=== PATIENT | female | born 1990 | race African-American/Black ===

== ENCOUNTER 2022-06-11 00:52 | Day surgery (SDC) | payer BC, SELFPAY ==
[2022-06-07 15:17] VITALS: BMI 22.8
--- NOTE | 2022-06-07 15:23 | PC.NURSE ---
Report to the Outpatient Waiting Room, entrance under the green pavilion located off [facility], at time 07:00 on date 06/11/22. Planned Procedure Time: 09:00AM. Time changes happen often and if your time is changed the preop area will call you the afternoon before. - You and your visitor will be asked to self-screen and do not enter if you have any COVID symptoms. - We encourage only one visitor and NO visitors under age 16 are allowed at this time. Your visitor will receive communication by the phone number that is given day of service. - The patient visitor is requested to social distance or may leave the building when not with patient due to restrictions. - A mask is required within the hospital. Patients may have clear liquids (water, carbonated beverages, clear teas, apple juice) until 3 hours prior to surgery (06:00AM) with a maximum of 20 ounces. - No food from midnight until time of surgery Take the following medications with a SIP of water the morning of surgery: XANAX NEEDED Medications to discontinue per physician: N/A Please no make-up, nail sammarinese, hairspray, perfume, deodorant, or body powder the day of surgery. No jewelry (including any body piercings) or valuables the day of surgery, leave them at home. Please take a shower or bath the night before, or the morning of, surgery with an antibacterial soap. Wear comfortable, loose fitting clothing. - Jewelry must be removed prior to entering the operating room. Rings and piercings that are not removed may be cut off. - The hospital will not accept responsibility for valuables. - Please leave all valuables, including medications, at home the day of surgery. If you are going home after surgery, a licensed student truck driver must drive you home. - NO public transportation without another adult. - We recommend that an adult stay with you for 24 hours following discharge. - We also recommend that you do not drive, make important decision, drink alcoholic beverages, or take any drugs that were not prescribed by your health care provider for at least 24 hours after your discharge time. Follow any additional instructions given to you from your surgeon. If you or anyone in your household have experienced Covid symptoms in the past week, please notify your surgeon or the nurse liaison at the phone number below for possible testing. Telephone instructions given to PATIENT and asked if any additional questions and then verbalized understanding. Patient advised to call surgeon office or pre surgery nurse liaison [phone] if any additional questions.
[2022-06-11] VITALS (9 sets, daily range): BP systolic 94–115; BP diastolic 58–73; PULSE 53–88; RESP 12–17; TEMP 36.4–36.8; O2SAT 100
--- NOTE | ~2022-06-11 | XR_ITS ---
EXAMINATION: XR surgery orthopedic DATE: 06/11/2022 10:47 INDICATION: Right foot bunionectomy TECHNIQUE: 2 fluoroscopic images of the right forefoot were obtained during procedure performed by Dr Monique Brothers. Radiologist was not present for the imaging or procedure. The amount of fluoroscopy time used during this procedure was 0.3 minutes. COMPARISON: None. FINDINGS: First tarsal metatarsal arthrodesis with dorsal plate and screw fixation. This includes a longer scre w which extends medially along the course of the Lisfranc ligament into the middle cuneiform. Stable fixation at the medial base of the first proximal phalanx likely for fixation of a realignment osteot rony. Alignment appears essentially anatomic. No fractures identified. Joint spaces are unremarkable. Irregular contour to the skin surface medially of the head of the first metatarsal likely related to reported bunionectomy. IMPRESSION: 1. Fluoroscopy utilized during reported bunionectomy at the right foot. Correlate with procedure note for further detail. Reviewed, dictated and finalized at location B. IMPRESSION: 1. Fluoroscopy utilized during reported bunionectomy at the right foot. Correla te with procedure note for further detail.
--- NOTE | 2022-06-11 07:10 | WPDHPUPDATE1 ---
History and Physical Update Update Date/Time: 06/11/22 07:10 History and Physical has been reviewed, including an updated exam of the patient. There are NO changes in the patient's condition. Risks, benefits, and alternatives have been discussed and questions answered. Patient agrees to proceed with procedure.
[2022-06-11] MEDS: LACTATED RINGERS 1,000 ML 30 ML IV CONT ×2 (07:45→11:07)
--- NOTE | 2022-06-11 08:50 | WPDANESEPPF ---
Anes - Initial Pre Proc Eval Procedure: Operation Date: 06/11/22 09:00 Proposed Procedures p Lapidus Bunionectomy Right Foot, Román Phalangeal Osteotomy Right Hallux - Pradip Brothers JR, MD Date/Time: 06/11/22 08:50 Surgeon: Pradip Brothers JR, MD Pre Op Diagnosis: BUNION DEFORMITY RIGHT FOOT Patient Data Age: 32 Gender: F Height: 1.7 m Weight: 64.6 kg Last Vital Signs Temp 36.4 C L 06/11/22 08:00 Pulse 65 06/11/22 08:00 Resp 14 06/11/22 08:00 BP 102/62 06/11/22 08:00 Pulse Ox 100 06/11/22 08:00 O2 Del Method Room Air 06/11/22 08:00 Allergies Allergy/AdvReac Type Severity Reaction Status Date / Time No Known Allergies Allergy Verified 06/11/22 08:26 Home Medications Medication Instructions Recorded Confirmed Type alprazolam 0.5 mg tablet 0.5 mg PO TID PRN Anxiety 06/07/22 06/11/22 History Patient hx anesthesia problems: none Family hx anesthesia problems: post op nausea/vomiting Results Review: All pre-operative results and documents have been reviewed as part of the pre-operative evaluation. [facility] Past Medical History Medical History (Updated 06/11/22 @ 08:51 by Carter Yi MD) Anxiety Social History Social History Smoking status: Never smoker Second hand tobacco smoke exposure: Yes (DAD, EX ) Alcohol intake: current Drinks per week: 3 Alcohol use details: SOCIALLY Substance use: never Substance use type: does not use Living arrangements: with family Spiritual care concerns: No Anes - Eval Final PreProcedure Day of Procedure 06/11/22 08:50 Patient weight: normal Heart: regular rate and rhythm Lungs: clear to auscultation Airway: Mallampati scale class II Neurological: alert and oriented Last oral intake: >/= 8 hours ASA classification: II Emergent: no Anesthetic plan: proceed Anesthesia type and monitoring: general LMA and standard monitoring Results Review: All pre-operative results and documents have been reviewed as part of the pre-operative evaluation. Informed Consent: The patient's anesthetic plan and its attendant risks and benefits were discussed with the patient/family/POA. Questions were solicited and answers provided to the satisfaction of the patient/family/POA.
[2022-06-11] MEDS: SCOPOLAMINE 1.5 MG PATCH TRANSDERM (08:52)
--- NOTE | 2022-06-11 09:03 | WPDANESPNB ---
Anes - Peripheral Nerve Block Date/Time: 06/11/22 09:03 I have discussed with the patient/family/POA the placement of a peripheral nerve block for post-operative pain management, including associated risks, benefits, complications, and side effects. Alternative methods of post-operative analgesia were detailed. Questions were solicited and answers provided to the satisfaction of the patient/family/POA. Time-Out: A pre-procedural Time-Out was completed immediately before starting the procedure and confirmed: Patient Identification, Site, Procedure, Patient Position and the Availability of Requisite Equipment. Clinical Indications: Acute post-operative pain management requested by the operative surgeon. Nerve Block Insertion Note Anes-nerve block: posterior fossa sciatic right and other (Saphenous right) Patient position: supine Skin prep: chlorhexidine Needle: 22 gauge, stimulating, insulated echogenic needle. Needle length: 80 mm Technique: nerve stimulation lost at (mA) Technique comment: mid 2mg [id number] Injectate: bupivacaine 0.5% with epi 5 mcg/ml (20/10ml no epi) and dexamethasone (mg) (4) Observations: tolerated well Complications: none Procedure start time:: 855 Procedure end time:: 901
[2022-06-11] MEDS: ceFAZolin 2 GM/D5W 50 ML 2 GM/50 ML BAG IVPB (09:05)
--- NOTE | 2022-06-11 11:12 | W.PM.PROC2 ---
Procedure Note - Detailed Date of Procedure 06/11/22 Pre-op Diagnosis BUNION DEFORMITY RIGHT FOOT Post-op Diagnosis Same Procedure Performed 1. Lapidus bunionectomy right foot 2. Román phalangeal osteotomy right hallux Surgeon Pradip Brothers JR, HODAM Anesthesia General and Regional (Popliteal fossa block) Indications Painful right bunion deformity right foot Findings No intra articular pathology noted Description of Procedure Untder mild sedation, the patient was brought to the operating room, placed on the operating table in the supine position. A pneumatic ankle tourniquet was placed about the patient's ankle. Following general anesthesia and a previous popliteal fossa block, the foot was then scrubbed, prepped, and draped in the usual aseptic manner. An Esmarch bandage was then used to exanguinate the patient's foot and pneumatic ankle tourniquet was then inflated. Surgery began in the following manner. Attention was directed to the dorsal aspect of the 1st metatarsocuneiform of the foot where fluoroscopy was used to identify the joint. A 3 cm incision was made overlying the dorsal aspect of the 1st metatarsocuneiform joint of the foot just medial to the extensor hallucis longus tendon. The incision was then continued deep down through the subcutaneous tissues using sharp and blunt dissection. All bleeders were ligated and cauterized as necessary. At this point, the extensor tendon was identified and reflected laterally. Next, the periosteum and capsular incision was made at the full length of the skin incision exposing the medial cuneiform as well as the base of the 1st metatarsal. Next, a sagittal bone saw was introduced from dorsal to plantar across the 1st metatarsocuneiform joint in order to free up any ankylosed portions of the joint and also to release any adhesions. Two Steinmann Pins were driven from dorsal to plantar 1cm proximal and distal to the 1st metatarsal cuneiform joint. The provided curved osteotome and curette was used to resect the cartilage and subchondral bone and a 2.0mm drill bit was used to fenestrate the joint to promote fusion. At this point, a small 2 cm incision was made along the lateral aspect of the 1st metatarsophalangeal joint of the right foot and a lateral release consisting of a lateral capsule incision as well as release of the adductor hallucis tendon with the tenotomy as well as releasing the distal aspect and lateral aspect and proximal aspect of the fibular sesamoid. After this, a lateral release was performed. The hallux was noted to be slightly reduced as far as the track-bound hallux. A 3m incision was made medial to the first metatarsal head extending proximal to the proximal phalanx. A 1.4mm Steinmann pin was driven from medial to lateral across the 1st metatarsal head. Next the Lapifuse positioner was used to obtain 3 plane correction of the hallux abductovalgus deformity. Fluoroscopy was used to make sure that the 1st MPJ was congruous and the sesamoid apparatus was centered under the first metatarsal. Next a 4mm cannulated screw was driven from the medial base of the 1st metatarsal to the central and lateral cuneiform bone. Excellent compression was noted, next a Lapifuse plate was placed dorsal medially along the 1st metatarsal cuneiform joint and 4 locking and one eccentrically drilled non locking screws was used to further compress the joint to ensure arthrodesis. At this point the positioner was removed and fluoroscopy was used to make sure that deformity correction was maintained. The patient still had slight hallux abductus so I made a closing medial base wedge resection from the base of the proximal phalanx and compressed the osteotomy with a Gekko 8mm nitinol compression staple. After the Román osteotomy the hallux was noted to be in a rectus position. The periosteum and capsular structures were reapproximated and coapted utilizing horizontal mattress as
[2022-06-11] MEDS: fentaNYL CITRATE INJ (*CRX) 100 MCG/2 ML VIAL 25 MCG IV PUSH ×3 (11:20→11:46)
[2022-06-11] MEDS: oxyCODONE HCL (*CRX) 5 MG TAB IR PO (12:16)
[2022-06-11] MEDS: diphenhydrAMINE HCl INJ 50 MG/ML VIAL 25 MG IV PUSH (12:16)
== END 2022-06-11 13:24 | disposition home or self-care (01) ==
PROVIDERS: PCP Nurse Practitioner Family; Visit Provider Podiatrist Foot & Ankle Surgery
PROC: (CPT 28299; principal; 2022-06-11 09:00)
DX: M21.611 Bunion of right foot (principal); G89.18 Other acute postprocedural pain; F41.9 Anxiety disorder, unspecified
CPT/HCPCS: 28298; 64445; 64450; 99199; A9270; C1713; J0690; J1100; J1200; J2250; J2405; J2704; J3010; J7120